=== PATIENT | female | born 1945 | race Caucasian/White ===

== ENCOUNTER 2016-12-13 08:52 | Day surgery (SDC) | payer MEDICARE, OTHER ==
--- NOTE | ~2016-12-13 | EGD ---
EGD REPORT [facility] [address] [place] [address] NAME: LINDSEY HEREDIA : [birth year] STATUS : REG [facility]#: [id number] AGE: 71 ADM/REG DATE : 12/13/16 MR#: [id number] REPORT SERV DATE: 12/13/16 DICTATED BY: VIANEY SHANNON DATE: 12/13/16 REPORT STATUS : Draft [facility] DATE: 12/13/16 [facility] Patient Name: Lindsey Heredia Date of : 1945 Attending MD: VIANEY SHANNON MD Procedure Date No Time: 12/13/2016 Procedure: Colonoscopy Indications: High risk colon cancer surveillance: Personal history of colonic polyps, FH of Colonic Polyps - 1st degree relative Referring MD: KAMINI ECHOLS MD Medicines: as per anesthesia Complications: No immediate complications. Procedure: Pre-Anesthesia Assessment: - ASA Grade Assessment: II - A patient with mild systemic disease. After I obtained informed consent, the scope was passed under direct vision. Throughout the procedure, the patient's blood pressure, pulse, and oxygen saturations were monitored continuously. The [facility] [id number] was introduced through the anus and advanced to the cecum, identified by appendiceal orifice and ileocecal valve. The colonoscopy was somewhat difficult due to restricted mobility of the colon, significant looping and a tortuous colon. The patient tolerated the procedure. The quality of the bowel preparation was adequate to identify polyps. Findings: The perianal and digital rectal examinations were normal. Two sessile polyps were found in the ascending colon. The polyps were 3 to 4 mm in size. These polyps were removed with a cold biopsy forceps. Resection and retrieval were complete. A few small and large-mouthed diverticula were found in the sigmoid colon, in the descending colon, in the transverse colon and in the ascending colon. Internal hemorrhoids were found during endoscopy and were mild. Impression: - Two 3 to 4 mm polyps in the ascending colon. Resected and retrieved. - Diverticulosis in the sigmoid colon, in the descending colon, in the transverse colon and in the ascending colon. - Internal hemorrhoids. EGD REPORT [address] [address] NAME: LINDSEY HEREDIA : [birth year] STATUS : [place] [facility] [place]#: [id number] AGE: 71 ADM/REG DATE : 12/13/16 MR#: [id number] REPORT SERV DATE: 12/13/16 DICTATED BY: VIANEY SHANNON DATE: 12/13/16 REPORT STATUS : Draft TRANSCRIBED BY: [employer] [facility] DATE: 12/13/16 Recommendation: - Await pathology results. - Repeat colonoscopy. - Repeat colonoscopy for surveillance based on pathology results. Procedure Code(s): --- Professional --- 35465, Colonoscopy, flexible, proximal to splenic flexure; with biopsy, single or multiple Diagnosis Code(s): --- Professional --- D12.2, Benign neoplasm of ascending colon K64.8, Other hemorrhoids K57.30, Diverticulosis of large intestine without perforation or abscess without bleeding Z86.010, Personal history of colonic polyps Z83.71, Family history of colonic polyps CPT copyright 2013 [employer]. All rights reserved. The codes documented in this report are preliminary and upon coder operator review may be revised to meet current compliance requirements. VIANEY SHANNON MD 12/13/2016 11:31 AM This report has been signed electronically. Number of Addenda: 0 Note Initiated On: 12/13/2016 10:52 AM Scope Withdrawal Time 0 hours 12 minutes 57 seconds [id number] [id number]
[~2016-12-13 08:52] MED LIST: CENTRUM PO; FISH OIL1200 MG PO; HARD NAILS PO; TUMSROLL PO; VESICARE5 PO; VITAMIN D31000 UNIT PO; [UNRECOGNIZED DRUG - OTHER]
== END 2016-12-13 23:59 | disposition home or self-care (01) ==
LOC: DMU 08:52
PROVIDERS: Internal Medicine Gastroenterology
PROC: 0DBK8ZZ Excision of Ascending Colon, Via Natural or Artificial Opening Endoscopic (ICD-10-PCS; principal; 2016-12-13 10:30)
DX: D12.2 Benign neoplasm of ascending colon (principal); Z86.010 Personal history of colon polyps; Z80.0 Family history of malignant neoplasm of digestive organs; K63.5 Polyp of colon; K57.30 Diverticulosis of large intestine without perforation or abscess without bleeding; K64.8 Other hemorrhoids; N32.81 Overactive bladder; Z85.3 Personal history of malignant neoplasm of breast; Z88.2 Allergy status to sulfonamides; Z79.899 Other long term (current) drug therapy; Z98.41 Cataract extraction status, right eye; Z98.42 Cataract extraction status, left eye; Z90.49 Acquired absence of other specified parts of digestive tract; Z90.710 Acquired absence of both cervix and uterus; Z98.890 Other specified postprocedural states; Z92.3 Personal history of irradiation
CPT/HCPCS: 88305